=== PATIENT | female | born 1990 | race Caucasian/White ===

== ENCOUNTER → 2023-12-25 | Outpatient (REF) | LOC: M LAB 11:59 | PROVIDERS: ATTEND Nurse Practitioner Adult Health | DX: Z01.89 Encounter for other specified special examinations (principal) ==

== ENCOUNTER → 2024-01-18 | Outpatient (REF) | LOC: M EMP 07:27 | PROVIDERS: ATTEND Family Medicine | DX: Z11.52 Encounter for screening for COVID-19 (principal) ==